=== PATIENT | male | born 2005 | race Caucasian/White ===

== ENCOUNTER 2023-07-18 11:39 | Inpatient (IN) ==
[2023-07-18] MEDS: Lactated Ringers 1000 ml BAG 1,000 ML IV ONE ×2 (15:16→16:52)
[2023-07-18 15:17] LABS: ABS Eosinophils 0.1 10^3/uL (0.0-0.5); ABS Lymphocytes 0.7 10^3/uL (1.0-4.8); ABS Monocytes 0.8 10^3/uL (0.0-1.1); ABS Neutrophils 15.1 10^3/uL (1.5-7.6); Eosinophil % 0.6 %; Hematocrit 39.7 % (38-53); Hemoglobin 13.3 g/dL (13.2-16.3); Lymphocyte % 4.1 %; Mean Corpuscular Hemoglobin 29.3 pg (27-33); Mean Corpuscular Hgb Conc 33.6 g/dL (31-36); Mean Corpuscular Volume 87.2 fL (80-97); Mean Platelet Volume 7.6 fL (7.5-11.2); Platelet Count 254 10^3/uL (150-450); Red Blood Count 4.55 10^6/uL (4.06-5.63); Red Cell Distribution Width 14.2 % (12-17); White Blood Count 16.8 10^3/uL (3.6-10.2)
[2023-07-18] MEDS: Ondansetron 4 mg VIAL 2 MG/ML 2 ml VIAL IV ONE (15:36)
[2023-07-18] MEDS: Morphine 4 MG/ML VIAL (1 ml) IV ONE (15:36)
[2023-07-18 16:03] LABS: ALT 7 U/L (7-52); AST 9 U/L (13-39); Albumin 4.4 g/dL (3.2-5.2); Albumin/Globulin Ratio 1.7 (1-3); Alkaline Phosphatase 89 U/L (35-149); Anion Gap 12 mmol/L (2-16); Blood Urea Nitrogen 19 mg/dL (6-24); C Reactive Protein 454.53 mg/L (<8.01); CO2 Carbon Dioxide 26 mmol/L (22-32); Calcium 9.5 mg/dL (8.6-10.3); Chloride 95 mmol/L (101-111); Creatinine, Serum 0.97 mg/dL (0.67-1.17); Globulin 2.6 g/dL (2-4); Glucose 87 mg/dL (70-100); Lipase < 10 U/L (11.0-82.0); Potassium 4.3 mmol/L (3.5-5.0); Sodium 133 mmol/L (135-145); eGFR CKD-EPI 114.6 (>60)
[2023-07-18] MEDS: Iohexol 350 (CONTRAST) 500 ML MDV IV ONE (16:23)
[2023-07-18 16:59] LABS: Urine Appearance Clear; Urine Bilirubin Negative (Negative); Urine Blood Negative (Negative); Urine Color Light-Yellow; Urine Glucose Negative (Negative); Urine Ketones 3+ (Negative); Urine Nitrite Negative (Negative); Urine Protein 1+ (>=30 mg/dL) (Negative); Urine Specific Gravity >1.050 (1.002-1.030); Urine Urobilinogen Negative (Negative)
[2023-07-18 17:00] LABS: Urine Bacteria Absent /HPF (Absent); Urine Red Blood Cell Trace(0-2/hpf) /HPF (0-Trace); Urine White Blood Cell Trace(0-5/hpf) /HPF (0-Trace)
[2023-07-18] MEDS: NS 0.9% 1000 ml BAG 1,000 ML IV SCH (19:03)
[2023-07-18] MEDS: Piperacillin/Tazobac 3.375 BAG 3.375 GM/100 ML BAG IV SCH (19:25)
[2023-07-18] MEDS ORDERED: Piperacillin/Tazobac 3.375 BAG 3.375 GM/100 ML BAG IV SCH (23:00)
[2023-07-19] MEDS: HYDROmorphone 1 MG/1 ML SYRINGE IV SLOW PU PRN (02:55)
[2023-07-19 05:43] LABS: ABS Eosinophils 0.3 10^3/uL (0.0-0.5); ABS Lymphocytes 1.2 10^3/uL (1.0-4.8); ABS Neutrophils 9.5 10^3/uL (1.5-7.6); Eosinophil % 2.2 %; Hemoglobin 10.9 g/dL (13.2-16.3); Lymphocyte % 10.4 %; Mean Corpuscular Hemoglobin 29.8 pg (27-33); Mean Corpuscular Hgb Conc 34.1 g/dL (31-36); Mean Corpuscular Volume 87.2 fL (80-97); Mean Platelet Volume 7.7 fL (7.5-11.2); Platelet Count 219 10^3/uL (150-450); Red Blood Count 3.66 10^6/uL (4.06-5.63); Red Cell Distribution Width 14.4 % (12-17)
[2023-07-19 06:07] LABS: C Reactive Protein 324.39 mg/L (<8.01); Calcium 8.6 mg/dL (8.6-10.3); Creatinine, Serum 0.98 mg/dL (0.67-1.17); Potassium 3.9 mmol/L (3.5-5.0); eGFR CKD-EPI 113.2 (>60)
[2023-07-19] MEDS: Ondansetron 4 mg VIAL 2 MG/ML 2 ml VIAL IV PRN (07:14)
[2023-07-19] MEDS ORDERED: Desflurane 240 ML INH ONE (12:31)
[2023-07-19] MEDS ORDERED: Midazolam 2 mg/2 ml VIAL 1 mg/ml 2 ml VIAL (2 mg) ONE (12:31)
[2023-07-19] MEDS ORDERED: Lidocaine 2% PF 5 ML VIAL ONE (12:31)
[2023-07-19] MEDS ORDERED: fentaNYL 100 mcg/2 ml 50 MCG/ML VIAL ONE ×2 (12:31→15:42)
[2023-07-19] MEDS ORDERED: Propofol 10 MG/ML 20 ML BTL ONE (12:31)
[2023-07-19] MEDS ORDERED: Rocuronium 50 mg VIAL 10 mg/ml 5 ml VIAL (50 mg) ONE (12:37)
[2023-07-19] MEDS ORDERED: Piperacillin/Tazobac 3.375 BAG 3.375 GM/100 ML BAG IV ONE (12:47)
[2023-07-19] MEDS ORDERED: Bupivacaine 0.25% EPI 200,000 30 ML SDV ONE (13:14)
[2023-07-19] MEDS ORDERED: Ondansetron 4 mg VIAL 2 MG/ML 2 ml VIAL IV PRN (13:47)
[2023-07-19] MEDS ORDERED: fentaNYL 100 mcg/2 ml 50 MCG/ML VIAL IV PRN (13:47)
[2023-07-19] MEDS ORDERED: Naloxone 0.4 mg VIAL 0.4 mg/ml 1 ml VIAL IV PRN ×2 (13:47)
[2023-07-19] MEDS ORDERED: Ondansetron 4 mg VIAL 2 MG/ML 2 ml VIAL ONE (14:02)
[2023-07-19] MEDS ORDERED: Succinylcholine 200 mg VIAL 20 mg/ml 10 ml VIAL (200 mg) ONE (14:55)
[2023-07-19] MEDS ORDERED: Bupivacaine-MPF SPINAL 7.5 MG/ML - 2ML AMP ONE (14:55)
[2023-07-19] MEDS ORDERED: Scopolamine 1 mg/72hr PATCH ONE (16:29)
[2023-07-19] MEDS: Scopolamine 1 mg/72hr PATCH TRANSDERM ONE (16:35)
[2023-07-19] MEDS ORDERED: Metoclopramide 5 MG/ML VIAL (10 mg) ONE (16:49)
[2023-07-19] MEDS: Metoclopramide 5 MG/ML VIAL (10 mg) IV PRN (16:50)
[2023-07-19] MEDS: Lactated Ringers 1000 ml BAG 1,000 ML IV SCH (18:44)
[2023-07-20] MEDS: oxyCODONE/Acetamin 5/325 mg TAB PO PRN (08:08)
[2023-07-20] MEDS: Buffered Lidocaine 1% SYRIN 1 ml INTRADERM ONE (10:17)
[2023-07-21 10:47] VITALS: BP 126/68
== END 2023-07-21 13:16 | disposition home or self-care (01) | DRG 225 ==
LOC: EDHOLD 11:39 → ED 11:39 → SSU 19:45
PROVIDERS: ADMIT Surgery; ATTEND Surgery

== ENCOUNTER 2023-07-27 13:55 | Inpatient (IN) ==
[2023-07-27] MEDS: Ondansetron 4 mg VIAL 2 MG/ML 2 ml VIAL IV ONE ×2 (14:33→17:02)
[2023-07-27] MEDS: Lactated Ringers 1000 ml BAG 1,000 ML IV ONE (14:33)
[2023-07-27 14:58] LABS: ABS Basophils 0.1 10^3/uL (0.0-0.1); ABS Eosinophils 0.1 10^3/uL (0.0-0.5); ABS Lymphocytes 1.5 10^3/uL (1.0-4.8); ABS Monocytes 0.8 10^3/uL (0.0-1.1); ABS Neutrophils 18.4 10^3/uL (1.5-7.6); ABS Nucleated RBC 0.03 10^3/ul; Eosinophil % 0.4 %; Hematocrit 42.4 % (38-53); Hemoglobin 14.1 g/dL (13.2-16.3); Lymphocyte % 7.4 %; Mean Corpuscular Hemoglobin 28.6 pg (27-33); Mean Corpuscular Hgb Conc 33.2 g/dL (31-36); Mean Corpuscular Volume 86.2 fL (80-97); Mean Platelet Volume 7.2 fL (7.5-11.2); Nucleated Red Blood Cells % 0.1 %/100WBC (0.0-0.8); Platelet Count 459 10^3/uL (150-450); Red Blood Count 4.92 10^6/uL (4.06-5.63); Red Cell Distribution Width 14.3 % (12-17); White Blood Count 20.9 10^3/uL (3.6-10.2)
[2023-07-27 15:23] LABS: Albumin 4.7 g/dL (3.2-5.2); Albumin/Globulin Ratio 1.5 (1-3); C Reactive Protein 27.52 mg/L (<8.01); Calcium 10.3 mg/dL (8.6-10.3); Creatinine, Serum 0.84 mg/dL (0.67-1.17); Globulin 3.1 g/dL (2-4); Total Bilirubin 0.4 mg/dL (0.2-1.0); Total Protein 7.8 g/dL (6.4-8.9)
[2023-07-27] MEDS: Morphine 4 MG/ML VIAL (1 ml) IV ONE ×3 (15:25→18:21)
[2023-07-27] MEDS ORDERED: HYDROmorphone 1 MG/1 ML SYRINGE IV SLOW PU PRN (17:24)
[2023-07-27] MEDS: Ondansetron 4 mg VIAL 2 MG/ML 2 ml VIAL IV PRN (18:20)
[2023-07-27] MEDS: Iohexol 300 (CONTRAST) 10 ML SDV IV ONE (18:56)
[2023-07-27] MEDS: Piperacillin/Tazobac 3.375 BAG 3.375 GM/100 ML BAG IV ONE (19:41)
[2023-07-27] MEDS: NS 0.9% 1000 ml BAG 1,000 ML IV SCH (19:49)
[2023-07-27] MEDS: HYDROmorphone 1 MG/1 ML SYRINGE IV SLOW PU PRN (19:58)
[2023-07-27] MEDS: HYDROmorphone 1 MG/1 ML SYRINGE IV PRN (23:04)
[2023-07-28] MEDS: LACTATED RINGERS 1000 ML BAG IV ONE (00:33)
[2023-07-28] MEDS: Piperacillin/Tazobac 3.375 BAG 3.375 GM/100 ML BAG IV SCH ×2 (00:34→01:20)
[2023-07-28 06:43] LABS: ABS Eosinophils 0.1 10^3/uL (0.0-0.5); ABS Lymphocytes 0.8 10^3/uL (1.0-4.8); Eosinophil % 0.7 %; Hematocrit 37.1 % (38-53); Hemoglobin 12.5 g/dL (13.2-16.3); Lymphocyte % 5.8 %; Mean Corpuscular Hemoglobin 29.1 pg (27-33); Mean Corpuscular Hgb Conc 33.8 g/dL (31-36); Mean Corpuscular Volume 86.1 fL (80-97); Mean Platelet Volume 7.4 fL (7.5-11.2); Platelet Count 366 10^3/uL (150-450); Red Blood Count 4.31 10^6/uL (4.06-5.63); Red Cell Distribution Width 14.2 % (12-17); White Blood Count 13.9 10^3/uL (3.6-10.2)
[2023-07-28 06:44] LABS: Calcium 9.4 mg/dL (8.6-10.3); Creatinine, Serum 0.92 mg/dL (0.67-1.17); Potassium 4.7 mmol/L (3.5-5.0); eGFR CKD-EPI 122.1 (>60)
[2023-07-28] MEDS ORDERED: Phenol 1.4% Throat Spray BTL MT PRN (08:58)
[2023-07-28] MEDS ORDERED: Lidocaine 2% PF 5 ML VIAL ONE (13:28)
[2023-07-28] MEDS ORDERED: Propofol 10 MG/ML 20 ML BTL ONE (13:28)
[2023-07-28] MEDS ORDERED: Rocuronium 50 mg VIAL 10 mg/ml 5 ml VIAL (50 mg) ONE ×3 (13:28→15:15)
[2023-07-28] MEDS ORDERED: Midazolam 2 mg/2 ml VIAL 1 mg/ml 2 ml VIAL (2 mg) ONE (13:29)
[2023-07-28] MEDS ORDERED: fentaNYL 250 mcg/5 ml 50 MCG/ML 5 ml VIAL (250 MCG) ONE (13:29)
[2023-07-28] MEDS ORDERED: Succinylcholine 200 mg VIAL 20 mg/ml 10 ml VIAL (200 mg) ONE (13:37)
[2023-07-28] MEDS ORDERED: Sevoflurane BOTTLE ONE (13:39)
[2023-07-28] MEDS ORDERED: Ondansetron 4 mg VIAL 2 MG/ML 2 ml VIAL IV PRN (14:07)
[2023-07-28] MEDS ORDERED: fentaNYL 100 mcg/2 ml 50 MCG/ML VIAL IV PRN (14:07)
[2023-07-28] MEDS ORDERED: Naloxone 0.4 mg VIAL 0.4 mg/ml 1 ml VIAL IV PRN (14:07)
[2023-07-28] MEDS ORDERED: Bupivacaine 0.25% EPI 200,000 30 ML SDV ONE (14:27)
[2023-07-28] MEDS ORDERED: Ondansetron 4 mg VIAL 2 MG/ML 2 ml VIAL ONE (15:01)
[2023-07-28] MEDS ORDERED: Dexamethasone IV 4 MG/ML VIAL 1 ml VIAL ONE (15:01)
[2023-07-28] MEDS ORDERED: Acetaminophen IV 1 GM/100ML 1,000 MG/100 ML BAG IV ONE (15:42)
[2023-07-28] MEDS: Pantoprazole VIAL 40 MG VIAL IV SCH (18:10)
[2023-07-28] MEDS: Metoclopramide 5 MG/ML VIAL (10 mg) IV ONE (22:00)
[2023-07-29 05:03] LABS: ABS Eosinophils 0.1 10^3/uL (0.0-0.5); ABS Lymphocytes 1.1 10^3/uL (1.0-4.8); ABS Monocytes 0.7 10^3/uL (0.0-1.1); ABS Neutrophils 5.3 10^3/uL (1.5-7.6); ABS Nucleated RBC 0.01 10^3/ul; Eosinophil % 1.3 %; Hematocrit 33.3 % (38-53); Hemoglobin 11.4 g/dL (13.2-16.3); Lymphocyte % 15.3 %; Mean Corpuscular Hemoglobin 29.3 pg (27-33); Mean Corpuscular Hgb Conc 34.3 g/dL (31-36); Mean Corpuscular Volume 85.7 fL (80-97); Mean Platelet Volume 7.2 fL (7.5-11.2); Nucleated Red Blood Cells % 0.1 %/100WBC (0.0-0.8); Platelet Count 312 10^3/uL (150-450); Red Blood Count 3.89 10^6/uL (4.06-5.63); White Blood Count 7.2 10^3/uL (3.6-10.2)
[2023-07-29 05:35] LABS: Calcium 8.4 mg/dL (8.6-10.3); Creatinine, Serum 0.8 mg/dL (0.67-1.17); Potassium 4.2 mmol/L (3.5-5.0); eGFR CKD-EPI 129.9 (>60)
[2023-07-29] MEDS ORDERED: Calcium Carb (TUMS) 500 mg CHEW TAB PO PRN (18:11)
[2023-07-29] MEDS: NS 0.9% 1000 ml BAG 1,000 ML IV SCH (18:29)
[2023-07-31 10:54] VITALS: BP 110/63
== END 2023-07-31 13:45 | disposition home or self-care (01) | DRG 224 ==
LOC: ED 13:55 → EDHOLD 13:55 → SSU 21:45
PROVIDERS: ADMIT Surgery; ATTEND Surgery